=== PATIENT | female | born 1995 | race Caucasian/White ===

== ENCOUNTER 2020-10-19 12:02 | Inpatient (IN) ==
[2020-10-19] MEDS ORDERED: Isovue-370 500 ML BOTTLE IVP ONE (12:41)
[2020-10-19 15:28] LABS: Magnesium 2.1 mg/dL (1.6-2.6); Phosphorous 3.3 mg/dL (2.7-4.5)
[2020-10-19 15:58] LABS: Alanine Aminotransferase 135 Units/L (7-52); Albumin 3.8 g/dL (3.5-5.7); Albumin/Globulin Ratio 1.2 (1.1-2.2); Alkaline Phosphatase 81 Units/L (34-104); Aspartate Amino Transferase 42 Units/L (13-39); BUN/Creatinine Ratio 21 (6-26); Bilirubin,Total 0.3 mg/dL (0.3-1.0); Blood Urea Nitrogen 12 mg/dL (6-20); C-Reactive Protein < 5 mg/L (Less than 10); Calcium 9.1 mg/dL (8.6-10.3); Carbon Dioxide 23 mEq/L (23-29); Chloride 108 mEq/L (98-107); Globulin 3.2 g/dL (2.4-3.5); Glucose 110 mg/dL (70-105); Osmolality,Calculated 288 (280-300); Potassium 4.5 mEq/L (3.5-5.1); Sodium 139 mEq/L (136-145); Troponin I < 0.03 ng/mL (< 0.04); eGFR For African Americans > 60 (> 60); eGFR For Non-African Americans > 60 (> 60)
[2020-10-19 15:58] LABS: Basophils % 0.4 %; Eosinophils # 0.1 K/mcL (0.0-0.6); Eosinophils % 1.3 %; Hematocrit 40.2 % (35.3-44.9); Hemoglobin 12.1 g/dL (11.5-15.4); Immature Granulocytes % 0.5 % (0-4); Lymphocytes # 2.4 K/mcL (0.6-4.6); Lymphocytes % 31.4 %; Mean Corpuscular HGB Conc 30.1 g/dL (31.6-35.5); Mean Corpuscular Hemoglobin 25.2 pg (28.0-33.3); Mean Corpuscular Volume 83.8 fL (83.0-100.0); Mean Platelet Volume 9.7 fL (9.4-12.4); Monocytes # 0.5 K/mcL (0.0-1.3); Monocytes % 6.2 %; Neutrophils # 4.7 K/mcL (1.6-8.9); Platelet Count 255 K/mcL (140-400); Red Cell Distribution Width 19.9 % (11.5-14.5); Segmented Neutrophils % 60.2 %; White Blood Count 7.8 K/mcL (4.3-11.1)
[2020-10-19] MEDS ORDERED: Cefepime HCl 2,000 MG in Water for inj. (sterile) 20 ML IVP STA (17:29)
[2020-10-19] MEDS ORDERED: Ondansetron ODT 4 MG TAB.RAPDIS SL PRN (18:58)
[2020-10-19] MEDS ORDERED: Naloxone 0.4 MG/ML INJ IVP PRN (18:58)
[2020-10-19] MEDS ORDERED: Perflutren Lipid Microsphere 1.3 ML in 0.9 % Sodium Chloride 8.7 ML IVP PRN (19:17)
[2020-10-19] MEDS: Nicotine 21 MG PATCH.TD24 TD SCH (20:39)
[2020-10-19] MEDS: Cefepime HCl 1,000 MG in Water for inj. (sterile) 10 ML IVP SCH (23:53)
[2020-10-20 06:06] LABS: Hematocrit 40.2 % (35.3-44.9); Hemoglobin 12.3 g/dL (11.5-15.4); Mean Corpuscular HGB Conc 30.6 g/dL (31.6-35.5); Mean Corpuscular Hemoglobin 25.2 pg (28.0-33.3); Mean Corpuscular Volume 82.2 fL (83.0-100.0); Mean Platelet Volume 10.1 fL (9.4-12.4); Platelet Count 258 K/mcL (140-400); Red Blood Count 4.89 M/mcL (3.82-4.97); Red Cell Distribution Width 19.7 % (11.5-14.5); White Blood Count 9.5 K/mcL (4.3-11.1)
[2020-10-20 06:38] LABS: BUN/Creatinine Ratio 16 (6-26); Blood Urea Nitrogen 10 mg/dL (6-20); Calcium 9.1 mg/dL (8.6-10.3); Carbon Dioxide 23 mEq/L (23-29); Chloride 106 mEq/L (98-107); Glucose 102 mg/dL (70-105); Magnesium 2.1 mg/dL (1.6-2.6); Osmolality,Calculated 283 (280-300); Potassium 4.2 mEq/L (3.5-5.1); Sodium 137 mEq/L (136-145); eGFR For African Americans > 60 (> 60); eGFR For Non-African Americans > 60 (> 60)
[2020-10-20] MEDS: Cefepime HCl 1,000 MG in Water for inj. (sterile) 10 ML IVP SCH ×3 (08:00→23:43)
[2020-10-20] MEDS: Nicotine 21 MG PATCH.TD24 TD SCH (17:59)
[2020-10-20] MEDS: Melatonin 3 MG TABLET PO SCH (20:33)
[2020-10-20] MEDS: Acetaminophen 325 MG TABLET PO PRN (20:36)
[2020-10-21 05:43] LABS: Hematocrit 40.8 % (35.3-44.9); Hemoglobin 12.5 g/dL (11.5-15.4); Mean Corpuscular HGB Conc 30.6 g/dL (31.6-35.5); Mean Corpuscular Hemoglobin 25.3 pg (28.0-33.3); Mean Corpuscular Volume 82.6 fL (83.0-100.0); Mean Platelet Volume 10.5 fL (9.4-12.4); Platelet Count 230 K/mcL (140-400); Red Blood Count 4.94 M/mcL (3.82-4.97); Red Cell Distribution Width 19.6 % (11.5-14.5)
[2020-10-21] MEDS ORDERED: Lidocaine Viscous Oral Soln 15 ML SOLUTION MM PRN (10:02)
[2020-10-21] MEDS ORDERED: *HR* FentaNYL (PF) 100 MCG/2 ML VIAL IVP PRN (10:02)
[2020-10-21] MEDS ORDERED: 0.9 % Sodium Chloride 500 ML IVC ONE (10:03)
[2020-10-21] MEDS: *HR* Midazolam HCl 5 MG/5 ML VIAL IVP PRN ×4 (10:40→10:53)
[2020-10-21] MEDS: Cefepime HCl 1,000 MG in Water for inj. (sterile) 10 ML IVP SCH (12:27)
[2020-10-21 13:56] LABS: eGFR For African Americans > 60 (> 60); eGFR For Non-African Americans > 60 (> 60)
[2020-10-21] MEDS: Nicotine 21 MG PATCH.TD24 TD SCH (20:16)
[2020-10-21] MEDS: Cefepime HCl 2,000 MG in Water for inj. (sterile) 20 ML IVP SCH (20:16)
[2020-10-21] MEDS: Melatonin 3 MG TABLET PO SCH (20:16)
[2020-10-22 07:40] LABS: Basophils % 0.5 %; Eosinophils # 0.1 K/mcL (0.0-0.6); Eosinophils % 1.1 %; Hematocrit 40.8 % (35.3-44.9); Hemoglobin 12.6 g/dL (11.5-15.4); Lymphocytes # 2.3 K/mcL (0.6-4.6); Lymphocytes % 29.6 %; Mean Corpuscular HGB Conc 30.9 g/dL (31.6-35.5); Mean Corpuscular Hemoglobin 25.1 pg (28.0-33.3); Mean Corpuscular Volume 81.3 fL (83.0-100.0); Mean Platelet Volume 10.3 fL (9.4-12.4); Monocytes # 0.6 K/mcL (0.0-1.3); Monocytes % 7.6 %; Neutrophils # 4.7 K/mcL (1.6-8.9); Platelet Count 218 K/mcL (140-400); Red Blood Count 5.02 M/mcL (3.82-4.97); Red Cell Distribution Width 19.3 % (11.5-14.5); Segmented Neutrophils % 60.2 %; White Blood Count 7.9 K/mcL (4.3-11.1)
[2020-10-22 07:55] LABS: BUN/Creatinine Ratio 28 (6-26); Blood Urea Nitrogen 17 mg/dL (6-20); Calcium 9.1 mg/dL (8.6-10.3); Carbon Dioxide 23 mEq/L (23-29); Chloride 103 mEq/L (98-107); Glucose 94 mg/dL (70-105); Osmolality,Calculated 281 (280-300); Potassium 4.3 mEq/L (3.5-5.1); Sodium 135 mEq/L (136-145); eGFR For African Americans > 60 (> 60); eGFR For Non-African Americans > 60 (> 60)
[2020-10-22] MEDS: Cefepime HCl 2,000 MG in Water for inj. (sterile) 20 ML IVP SCH ×2 (08:00→20:20)
[2020-10-22] MEDS: Nicotine 21 MG PATCH.TD24 TD SCH (20:19)
[2020-10-22] MEDS: Melatonin 3 MG TABLET PO SCH (20:19)
[2020-10-23 03:13] LABS: Basophils % 0.5 %; Eosinophils # 0.1 K/mcL (0.0-0.6); Eosinophils % 1.3 %; Hematocrit 37.8 % (35.3-44.9); Hemoglobin 11.8 g/dL (11.5-15.4); Immature Granulocytes % 1.1 % (0-4); Lymphocytes # 2.6 K/mcL (0.6-4.6); Lymphocytes % 30.8 %; Mean Corpuscular HGB Conc 31.2 g/dL (31.6-35.5); Mean Corpuscular Hemoglobin 25.1 pg (28.0-33.3); Mean Corpuscular Volume 80.4 fL (83.0-100.0); Mean Platelet Volume 10.8 fL (9.4-12.4); Monocytes # 0.7 K/mcL (0.0-1.3); Monocytes % 8.8 %; Neutrophils # 4.8 K/mcL (1.6-8.9); Platelet Count 169 K/mcL (140-400); Segmented Neutrophils % 57.5 %; White Blood Count 8.4 K/mcL (4.3-11.1)
[2020-10-23 03:23] LABS: BUN/Creatinine Ratio 36 (6-26); Blood Urea Nitrogen 22 mg/dL (6-20); Calcium 9.2 mg/dL (8.6-10.3); Carbon Dioxide 24 mEq/L (23-29); Chloride 106 mEq/L (98-107); Glucose 102 mg/dL (70-105); Osmolality,Calculated 286 (280-300); Potassium 4.2 mEq/L (3.5-5.1); Sodium 136 mEq/L (136-145); eGFR For African Americans > 60 (> 60); eGFR For Non-African Americans > 60 (> 60)
[2020-10-23] MEDS: Cefepime HCl 2,000 MG in Water for inj. (sterile) 20 ML IVP SCH ×2 (08:05→20:42)
[2020-10-23] MEDS: Nicotine 21 MG PATCH.TD24 TD SCH (18:02)
[2020-10-23] MEDS: Acetaminophen 325 MG TABLET PO PRN (20:41)
[2020-10-23] MEDS: Melatonin 3 MG TABLET PO SCH (20:42)
[2020-10-24] MEDS: Vancomycin 1,250 MG/262.5 ML IV.SOLN IVPB SCH ×3 (06:09→23:13)
[2020-10-24 06:10] LABS: BUN/Creatinine Ratio 28 (6-26); Blood Urea Nitrogen 16 mg/dL (6-20); Calcium 8.9 mg/dL (8.6-10.3); Carbon Dioxide 23 mEq/L (23-29); Chloride 105 mEq/L (98-107); Glucose 98 mg/dL (70-105); Osmolality,Calculated 281 (280-300); Sodium 135 mEq/L (136-145); eGFR For African Americans > 60 (> 60); eGFR For Non-African Americans > 60 (> 60)
[2020-10-24] MEDS: Cefepime HCl 2,000 MG in Water for inj. (sterile) 20 ML IVP SCH ×2 (07:52→21:15)
[2020-10-24] MEDS: Nicotine 21 MG PATCH.TD24 TD SCH (18:03)
[2020-10-24] MEDS: Melatonin 3 MG TABLET PO SCH (20:44)
[2020-10-25 01:50] LABS: BUN/Creatinine Ratio 33 (6-26); Blood Urea Nitrogen 22 mg/dL (6-20); Calcium 8.9 mg/dL (8.6-10.3); Carbon Dioxide 24 mEq/L (23-29); Chloride 105 mEq/L (98-107); Glucose 80 mg/dL (70-105); Osmolality,Calculated 288 (280-300); Potassium 3.6 mEq/L (3.5-5.1); Sodium 138 mEq/L (136-145); eGFR For African Americans > 60 (> 60); eGFR For Non-African Americans > 60 (> 60)
[2020-10-25] MEDS: Vancomycin 1,250 MG/262.5 ML IV.SOLN IVPB SCH ×3 (06:21→23:36)
[2020-10-25] MEDS ORDERED: Lidocaine Viscous Oral Soln 15 ML SOLUTION MM PRN (08:30)
[2020-10-25] MEDS ORDERED: 0.9 % Sodium Chloride 500 ML IVC ONE (08:31)
[2020-10-25] MEDS: Cefepime HCl 2,000 MG in Water for inj. (sterile) 20 ML IVP SCH ×2 (10:51→19:38)
[2020-10-25] MEDS: Acetaminophen 325 MG TABLET PO PRN (10:58)
[2020-10-25] MEDS ORDERED: *HR* Propofol 200 MG/20 ML VIAL IVP ONE (16:55)
[2020-10-25] MEDS ORDERED: *HR* Propofol 500 MG/50 ML BOTTLE IVP ONE (16:55)
[2020-10-25] MEDS ORDERED: Lidocaine -MPF 2% 5 ML VIAL SQ ONE (16:55)
[2020-10-25] MEDS: Melatonin 3 MG TABLET PO SCH (19:37)
[2020-10-25] MEDS: Nicotine 21 MG PATCH.TD24 TD SCH (19:38)
[2020-10-26 05:38] LABS: Basophils % 0.5 %; Eosinophils # 0.1 K/mcL (0.0-0.6); Eosinophils % 1.6 %; Hematocrit 42.5 % (35.3-44.9); Hemoglobin 12.7 g/dL (11.5-15.4); Immature Granulocytes % 1.3 % (0-4); Lymphocytes # 2.5 K/mcL (0.6-4.6); Lymphocytes % 32.7 %; Mean Corpuscular HGB Conc 29.9 g/dL (31.6-35.5); Mean Corpuscular Volume 83.5 fL (83.0-100.0); Monocytes # 0.6 K/mcL (0.0-1.3); Monocytes % 7.9 %; Neutrophils # 4.3 K/mcL (1.6-8.9); Platelet Count 217 K/mcL (140-400); Red Blood Count 5.09 M/mcL (3.82-4.97); Red Cell Distribution Width 19.4 % (11.5-14.5); White Blood Count 7.7 K/mcL (4.3-11.1)
[2020-10-26 05:43] LABS: BUN/Creatinine Ratio 24 (6-26); Blood Urea Nitrogen 15 mg/dL (6-20); Calcium 9.3 mg/dL (8.6-10.3); Carbon Dioxide 26 mEq/L (23-29); Chloride 104 mEq/L (98-107); Glucose 103 mg/dL (70-105); Osmolality,Calculated 283 (280-300); Potassium 4.1 mEq/L (3.5-5.1); Sodium 136 mEq/L (136-145); eGFR For African Americans > 60 (> 60); eGFR For Non-African Americans > 60 (> 60)
[2020-10-26] MEDS: Vancomycin 1,250 MG/262.5 ML IV.SOLN IVPB SCH ×3 (05:58→23:11)
[2020-10-26] MEDS: Cefepime HCl 2,000 MG in Water for inj. (sterile) 20 ML IVP SCH ×2 (08:07→19:58)
[2020-10-26] MEDS: Nicotine 21 MG PATCH.TD24 TD SCH (19:57)
[2020-10-26] MEDS: Melatonin 3 MG TABLET PO SCH (20:05)
[2020-10-27] MEDS: Vancomycin 1,250 MG/262.5 ML IV.SOLN IVPB SCH ×2 (06:09→14:15)
[2020-10-27 06:24] LABS: Basophils # 0.1 K/mcL (0.0-0.2); Basophils % 0.7 %; Eosinophils # 0.2 K/mcL (0.0-0.6); Eosinophils % 2.3 %; Hematocrit 38.6 % (35.3-44.9); Hemoglobin 11.6 g/dL (11.5-15.4); Immature Granulocytes % 0.9 % (0-4); Lymphocytes # 2.9 K/mcL (0.6-4.6); Lymphocytes % 41.4 %; Mean Corpuscular HGB Conc 30.1 g/dL (31.6-35.5); Mean Corpuscular Hemoglobin 25.4 pg (28.0-33.3); Mean Corpuscular Volume 84.6 fL (83.0-100.0); Mean Platelet Volume 9.4 fL (9.4-12.4); Monocytes # 0.5 K/mcL (0.0-1.3); Monocytes % 7.6 %; Neutrophils # 3.3 K/mcL (1.6-8.9); Platelet Count 214 K/mcL (140-400); Red Blood Count 4.56 M/mcL (3.82-4.97); Red Cell Distribution Width 18.9 % (11.5-14.5); Segmented Neutrophils % 47.1 %; White Blood Count 6.9 K/mcL (4.3-11.1)
[2020-10-27 06:51] LABS: BUN/Creatinine Ratio 25 (6-26); Blood Urea Nitrogen 16 mg/dL (6-20); Calcium 9.1 mg/dL (8.6-10.3); Carbon Dioxide 27 mEq/L (23-29); Chloride 104 mEq/L (98-107); Glucose 140 mg/dL (70-105); Osmolality,Calculated 289 (280-300); Potassium 3.9 mEq/L (3.5-5.1); Sodium 138 mEq/L (136-145); eGFR For African Americans > 60 (> 60); eGFR For Non-African Americans > 60 (> 60)
[2020-10-27] MEDS: Cefepime HCl 2,000 MG in Water for inj. (sterile) 20 ML IVP SCH (07:44)
[2020-10-27] MEDS ORDERED: Clotrimazole 1% CRM 15 GM TUBE TP SCH (09:00)
[2020-10-27] MEDS ORDERED: Lidocaine -MPF 1% 5 ML AMPUL INFILT ONE (11:18)
[2020-10-27 15:14] VITALS: BP 121/72
== END 2020-10-27 17:20 | DRG 193 ==
LOC: EMEROOARM 12:02 → 2ANU 12:02 → SUATTDRO 19:19 → 2ANU 20:16
PROVIDERS: ADMIT Student in an Organized Health Care Education/Training Program; ATTEND Family Medicine